=== PATIENT | female | born 1955 | race Two or more races ===

== ENCOUNTER 2018-10-14 05:45 | Day surgery (SDC) | payer OTHER ==
[2018-10-14] MEDS ORDERED: PROPOFOL 20 ML (07:35)
[2018-10-14] MEDS ORDERED: FENTAnyl 50 MCG/ML VIAL (07:35)
[2018-10-14] MEDS ORDERED: LABETALOL HCL 20MG INJ IV (08:00)
[2018-10-14] MEDS ORDERED: ONDANSETRON 4 MG INJ IV (08:00)
[2018-10-14] MEDS ORDERED: hydrALAzine 20 MG INJ IV (08:00)
== END 2018-10-14 13:06 | disposition home or self-care (01) ==
LOC: GIL 05:45
DX: R19.5 Other fecal abnormalities (principal); K29.50 Unspecified chronic gastritis without bleeding; D12.2 Benign neoplasm of ascending colon; D12.7 Benign neoplasm of rectosigmoid junction; K57.30 Diverticulosis of large intestine without perforation or abscess without bleeding; I10 Essential (primary) hypertension; E78.5 Hyperlipidemia, unspecified; E11.9 Type 2 diabetes mellitus without complications; E66.01 Morbid (severe) obesity due to excess calories; Z68.41 Body mass index [BMI] 40.0-44.9, adult
CPT/HCPCS: 43239; 82962; 88305; 88312